=== PATIENT | male | born 1955 | race Caucasian/White ===

== ENCOUNTER → 2019-12-28 | Outpatient (CLI) | payer OTHER ==
--- NOTE | 2019-12-28 12:51 | RAD ---
EXAM: LUMBAR SPINE 2-3V, KNEE LEFT 2V 12/28/2019 12:00 AM CLINICAL INDICATION:Low back pain, numbness in legs, pain in legs, arthritis. Knee pain. COMPARISON:None TECHNIQUE:AP and lateral views of the lumbar spine, AP and lateral views of the left knee FINDINGS: Lumbar spine: There are 5 nonrib bearing lumbar vertebral bodies. No acute fracture. Alignment is normal. There is severe disc space narrowing at L5-S1 with endplate sclerosis. Mild disc space narrowing at L1-L2. There are tiny anterior osteophytes throughout the lumbar spine. No significant facet arthrosis. Vascular calcifications are noted. Left knee: No acute fracture. Alignment is normal. There is mild medial and patellofemoral compartment narrowing. Small tricompartment osteophytes. There is a small joint effusion. Vascular calcifications are noted. IMPRESSION: 1. Severe degenerative disc disease at L5-S1, mild elsewhere in the lumbar spine. 2. Mild degenerative joint disease of the left knee, greatest in the medial and patellofemoral compartments. Electronically signed by: America Quinonez MD (12/28/2019 12:47 PM) [id number]
== END ==
LOC: RAD 08:41
PROVIDERS: ATTEND Family Medicine
DX: M51.37 Other intervertebral disc degeneration, lumbosacral region (principal); M48.07 Spinal stenosis, lumbosacral region; M17.12 Unilateral primary osteoarthritis, left knee; M25.462 Effusion, left knee; M25.762 Osteophyte, left knee
CPT/HCPCS: 72100; 73560